=== PATIENT | male | born 1995 | race Two or more races ===

== ENCOUNTER → 2020-12-03 03:50 | Outpatient (CLI) | payer OTHER | END | disposition home or self-care (01) | LOC: PPH VACUNA 03:50 | DX: Z23 Encounter for immunization (principal) ==

== ENCOUNTER 2020-12-24 23:34 | Outpatient (CLI) | payer OTHER | END 2020-12-24 23:35 | disposition home or self-care (01) | LOC: PPH VACUNA 23:34 | DX: Z23 Encounter for immunization (principal) ==

== ENCOUNTER 2021-08-24 08:00 | Outpatient (CLI) | payer OTHER | END 2021-08-24 08:30 | disposition home or self-care (01) | LOC: PPH VACUNA 08:00 | PROVIDERS: ATTEND Emergency Medicine Pediatric Emergency Medicine | DX: Z23 Encounter for immunization (principal) ==